=== PATIENT | male | born 1970 | race Caucasian/White ===

== ENCOUNTER 2016-06-04 10:09 | Emergency (ER) | payer OTHER ==
[~2016-06-04] VITALS: Ht 182.9 cm; Wt 120.2 kg
[2016-06-04 10:28] VITALS: BP 137/84
[2016-06-04] MEDS ORDERED: KETOROLAC 30 MG/1 ML IM ONE (11:00)
[2016-06-04] MEDS ORDERED: KETOROLAC 30 MG/1 ML ONE (11:16)
== END 2016-06-04 12:16 | disposition home or self-care (01) ==
LOC: ED 12:00
DX: M76.61 Achilles tendinitis, right leg (principal); F17.210 Nicotine dependence, cigarettes, uncomplicated
CPT/HCPCS: 29515; 73610; 96372; 99284; J1885